=== PATIENT | female | born 1990 | race Caucasian/White ===

== ENCOUNTER 2017-01-12 10:07 | Outpatient (CLI) | payer MEDICAID ==
[~2017-01-12] VITALS: Ht 157.5 cm; Wt 90.9 kg
[2017-01-12 10:15] VITALS: BP 124/67; PULSE 75; TEMP 98.2
[2017-01-12 10:59] VITALS: BP 124/67; PULSE 75; TEMP 98.2
[2017-01-12 11:11] VITALS: BP 119/70; PULSE 78
[2017-01-12 11:19] LABS: AMPHETAMINE URINE NEGATIVE; BARBITURATES URINE NEGATIVE; BENZODIAZEPINES URINE NEGATIVE; BUPRENORPHINE URINE NEGATIVE; METHADONE URINE NEGATIVE; OPIATES URINE NEGATIVE; OXYCODONE URINE NEGATIVE; PHENCYCLIDINE URINE NEGATIVE; PROPOXYPHENE URINE NEGATIVE; THC CANNABINOIDS URINE NEGATIVE
[2017-01-12 11:41] VITALS: BP 118/74; PULSE 73
[2017-01-13] MEDS ORDERED: TYLENOL 325MG325 MG PO (22:23)
[2017-01-13] MEDS ORDERED: PRENATAL MULTIV1 KIT PO (22:23)
== END 2017-01-12 11:45 | disposition home or self-care (01) ==
LOC: LDRO 10:07
PROVIDERS: Student in an Organized Health Care Education/Training Program
DX: O47.1 False labor at or after 37 completed weeks of gestation (principal); Z3A.39 39 weeks gestation of pregnancy

== ENCOUNTER 2017-01-13 22:03 | Inpatient (IN) | payer MEDICAID ==
[~2017-01-13] VITALS: Ht 157.5 cm; Wt 91.4 kg
[2017-01-13 22:17] VITALS: BP 126/76; PULSE 67; TEMP 98
[2017-01-13] MEDS ORDERED: PRENATAL MULTIV1 KIT PO (22:23)
[2017-01-13] MEDS ORDERED: TYLENOL 325MG325 MG PO (22:23)
[2017-01-14] VITALS (69 sets, daily range): BP systolic 88–136; BP diastolic 43–79; PULSE 68–95; TEMP 97.6–98.1
[2017-01-14 00:36] LABS: BASO % 0.3 % (0.0-2.0); EOS # 0.1 (0.0-0.7); GRAN # 8.1 (1.4-6.5); GRAN % 70.6 % (42.2-75.2); HEMOGLOBIN 12.3 g/dl (12.5-16.0); LYMPH # 2.2 (1.2-3.4); LYMPH % 19.5 % (20.0-51.0); MEAN CELL VOLUME 88 fl (80.0-100.0); MEAN CORPUSCULAR HEMOGLOBIN 29 pg (27.0-31.0); MEAN CORPUSCULAR HGB CONC 33 g/dl (33.0-37.0); MEAN PLATELET VOLUME 12.2 fl (7.4-10.4); MONO # 0.9 (0.1-0.6); MONO % 8.2 % (1.7-9.3); PLATELET COUNT 179 K/mm3 (130-400); RED BLOOD COUNT 4.22 M/mm3 (4.10-5.30); REDCELL DISTRIBUTION WIDTH-CV 15.2 % (11.5-14.5); WHITE BLOOD COUNT 11.5 K/mm3 (4.8-10.8)
[2017-01-15 02:00] VITALS: BP 115/80; PULSE 83; TEMP 97.6
[2017-01-15 08:30] VITALS: BP 119/68; PULSE 83; TEMP 98.3
[2017-01-15 12:30] VITALS: BP 107/62; PULSE 88; TEMP 98
[2017-01-15 16:00] VITALS: BP 121/61; PULSE 98; TEMP 98
[2017-01-15 19:30] VITALS: BP 109/62; PULSE 87; TEMP 98.4
[2017-01-16 09:20] VITALS: BP 113/78; PULSE 82; TEMP 97.9
[2017-01-16 17:00] VITALS: BP 114/68; PULSE 86; TEMP 98.4
[2017-01-16 20:55] VITALS: BP 129/72; PULSE 85; TEMP 98.2
[2017-01-17] MEDS ORDERED: MOTRIN 800800 MG/TAB PO (07:18)
[2017-01-17] MEDS ORDERED: PERCOCET 325 MG1 TA2 PO (07:18)
[2017-01-17 07:49] VITALS: BP 128/89; PULSE 80; TEMP 97.7
== END 2017-01-17 15:40 | disposition home or self-care (01) | DRG 766 ==
LOC: LDRO 22:03 → LDR 23:41 → OB 23:41
PROVIDERS: Obstetrics & Gynecology
PROC: 10D00Z1 Extraction of Products of Conception, Low, Open Approach (ICD-10-PCS; principal; 2017-01-14)
DX: O48.0 Post-term pregnancy (principal); O62.0 Primary inadequate contractions; O99.824 Streptococcus B carrier state complicating childbirth; Z3A.40 40 weeks gestation of pregnancy; Z37.0 Single live birth
CPT/HCPCS: J0690; J1885; J2250; J2270; J2370; J2400; J2405; J2540; J2590; J2795; J3010; J7120